=== PATIENT | female | born 1975 | race Caucasian/White ===

== ENCOUNTER 2021-09-03 13:31 | Emergency (ER) | payer SELFPAY ==
[2021-09-03 13:54] VITALS: TEMP 97.3; BMI 68.1
[2021-09-03 18:06] LABS: BASO % 0.9 % (0-2.0); LYMPH % 16.8 % (8-40); MCH 28.6 pg (25.7-33.7); MCHC 31.6 g/dl (32.0-36.0); MEAN CELL VOLUME 90.6 fl (80-96); MEAN PLT VOLUME 10.2 fl (7.5-11.1); MONO % 10.9 % (3.8-10.2); NEUT % 69.4 % (42.8-82.8); PLATELET COUNT 227 10^3/uL (134-434); RBC 4.53 M/mm3 (3.60-5.2); RDW 15.8 % (11.6-15.6); WHITE BLOOD COUNT 8.4 K/mm3 (4.0-10.0)
[2021-09-03 18:31] LABS: CHLORIDE 105 mmol/L (98-107); SODIUM 140 mmol/L (136-145)
[2021-09-03 18:33] LABS: CALCIUM 8.9 mg/dL (8.5-10.1)
[2021-09-03 18:34] LABS: ALBUMIN 3.5 g/dl (3.4-5.0); ANION GAP 6 MMOL/L (8-16); BLOOD UREA NITROGEN 13.8 mg/dL (7-18); CO2 28 mmol/L (21-32); GLUCOSE,RANDOM 88 mg/dL (74-106)
[2021-09-03 18:35] VITALS: BP 111/71; PULSE 84
[2021-09-03 18:37] LABS: CREATININE 0.9 mg/dL (0.55-1.3); SGOT/AST 26 U/L (15-37); SGPT/ALT 38 U/L (13-61)
[2021-09-03 18:39] LABS: BILIRUBIN,TOTAL 0.7 mg/dL (0.2-1); TOT PROT 7.6 g/dl (6.4-8.2)
[2021-09-03 18:40] LABS: ALK PHOS 57 U/L (45-117)
[2021-09-03 18:42] LABS: N-TERMINAL BNP 693.4 pg/ml (5-125)
== END 2021-09-03 22:11 | disposition home or self-care (01) ==
LOC: JER 13:31
DX: R06.02 Shortness of breath (principal); J18.9 Pneumonia, unspecified organism
CPT/HCPCS: 36415; 71046-TC-FY; 80053; 82550; 83880; 84484; 85025; 93005; 93010; 99285-25; C9803; U0003; U0005